=== PATIENT | female | born 1995 | race African-American/Black ===

== ENCOUNTER 2017-03-03 20:03 | Emergency (ER) | payer BC, OTHER ==
[~2017-03-03] VITALS: Ht 160 cm; Wt 73.0 kg
[~2017-03-03 20:03] MED LIST: ZITH500T PO
[2017-03-03 20:04] VITALS: BP 130/88; PULSE 73; RESP 16; TEMP 98.6; O2SAT 100
--- NOTE | 2017-03-03 20:26 | PD ---
Physical Exam Time Seen by Provider: 20:24 Narrative 21yo F c/o "keep breaking out in hives" that starts at 1am this morning. Been taking Benadryl; last taken at 6pm. Itching all over. Denies fever, vomiting. Patient seen in triage. VS reviewed. Awaiting bed placement. Data Data Last Documented VS Vital Signs Date Time Temp Pulse Resp B/P Pulse Ox O2 Delivery O2 Flow Rate FiO2 03/03/17 20:04 98.6 73 16 130/88 100 Room Air MDM Supervised Visit with KENNY: Alana Marinelli Mar 03, 2017 20:26
--- NOTE | 2017-03-03 22:42 | PD ---
HPI Chief Complaint: Allergic/Adverse Reaction Time Seen by Provider: 22:24 Travel History International Travel<30 days: No Contact w/Intl Traveler<30days: No Traveled to known affect area: No History of Present Illness HPI 21yo F with no PMH presents to the ED with c/o hives since 1am this morning. States it was all over her body and it was itchy. States she last took benadryl at 6pm. Denies any fever, chest pain, sob, tongue or lip swelling, n/v , abdominal pain, focal weakness or numbness. Pt states she took a shower and it did not help. Denies any new medication or lotion or any products. PFSH Past Medical History Medical History: Denies Significant Hx Diminished Hearing: No Genitourinary: Yes (MENSTRUAL CRAMPS) Immunizations Current: Yes Tetanus Vaccination: Unknown Influenza Vaccination: No ?: Not LMP: JUST ENDED Past Surgical History Surgical History: No Previous Surgery Social History Alcohol Use: No Tobacco Use: No Substance Use: No Allergies-Medications (Allergen,Severity, Reaction): Coded Allergies: No Known Allergies (Verified , 03/03/17) Reported Meds & Prescriptions Reported Meds & Active Scripts Active No Active Prescriptions or Reported Medications Review of Systems Except as stated in HPI: all other systems reviewed are Neg Physical Exam Narrative GENERAL: 21yo F not in distress. SKIN: Focused skin assessment warm/dry. Do not see any urticaria or any rash. HEAD: Atraumatic. Normocephalic. EYES: Pupils equal and round. No scleral icterus. No injection or drainage. ENT: No tongue or lips swelling. No mucosal involvement. NECK: Trachea midline. No JVD. CARDIOVASCULAR: Regular rate and rhythm. No murmur appreciated. RESPIRATORY: No accessory muscle use. Clear to auscultation. Breath sounds equal bilaterally. GASTROINTESTINAL: Abdomen soft, non-tender, nondistended. MUSCULOSKELETAL: No obvious deformities. No clubbing. No cyanosis. No edema. NEUROLOGICAL: Awake and alert. No obvious cranial nerve deficits. Motor grossly within normal limits. Normal speech. PSYCHIATRIC: Appropriate mood and affect; insight and judgment normal. Data Data Last Documented VS Vital Signs Date Time Temp Pulse Resp B/P Pulse Ox O2 Delivery O2 Flow Rate FiO2 03/03/17 20:04 98.6 73 16 130/88 100 Room Air Orders Diphenhydramine (Benadryl) (03/03/17 22:45) [facility] Medical Decision Making Medical Screen Exam Complete: Yes Emergency Medical Condition: Yes Differential Diagnosis Urticaria vs. allergic reaction Narrative Course 21yo F here with c/o urticaria that has now resolved. I do not see any rash on exam. Pt is well appearing and not in distress. Airway patent. Vital signs stable. I ordered diphenhydramine 50mg PO for itching. Pt was upset that I could not diagnose what is wrong with her and states the rash was there but she waited too long in the waiting room. She left without being reevaluated. Diagnosis Primary Impression: Itching Patient Instructions: General Instructions Departure Forms: Tests/Procedures Additional Instructions: Please follow up with your PMD in 3-7 days for further evaluation of urticaria or return when urticaria returns. Med/Other Pt SpecificInfo: No Change to Meds Scripts No Active Prescriptions or Reported Meds Disposition: 07 AGAINST MEDICAL ADVICE Condition: Stable Isabela Hamilton DO Mar 03, 2017 22:42
[2017-03-03] MEDS ORDERED: diphenhydrAMINE HCL 50 MG CAP PO ONE (22:45)
== END 2017-03-04 00:08 | disposition left against medical advice (07) ==
LOC: NEPD 20:03
DX: L29.9 Pruritus, unspecified (principal)
CPT/HCPCS: 99283; Q0163

== ENCOUNTER 2017-12-17 15:16 | Emergency (ER) | payer BC, MEDICAID ==
--- NOTE | 2017-12-17 15:59 | PD ---
HPI Chief Complaint back pain Date Seen: Dec 17, 2017 Time Seen: 15:54 Travel History International Travel<30 Days: No Contact w/Intl Traveler<30Days: No History of Present Illness HPI Patient is a 22 year old primigravida at 21 weeks, who presents to the OB ED with lower back pain, worse in the left lower back. Has hx UTI in the past. OB care with Dr. Nicholson in [place]. She denies leakage of fluid, vaginal bleeding, and contractions. She feels baby moving regularly. She denies DUNN/N/V/D /fever/sick contacts/SOB/calf pain/dizziness/seeing spots. History Past Medical History Medical History: Denies Significant Hx Past Surgical History Surgical History: No Previous Surgery Family History Family History: Negative Social History Alcohol Use: No Tobacco Use: No Substance Abuse: No Allergies-Medications (Allergen,Severity, Reaction): Coded Allergies: No Known Allergies (Verified Allergy, Unknown, 12/17/17) Home Meds No Active Prescriptions or Reported Meds Review of Systems Except as stated in HPI: all other systems reviewed are Neg General / Constitutional: No: Fever, Weight Gain Eyes: No: Diploplia, Blurred Vision HENT: No: Headaches, Vertigo Respiratory: No: Cough, Short of Breath Gastrointestinal: No: Nausea, Vomiting, Diarrhea, Abdominal Pain Genitourinary: No: Dysuria, Hematuria Musculoskeletal: No: Cramping, Edema Skin: No Rash, No Itching Neurologic: No: Weakness, Syncope Psychiatric: No: Anxiety, Depression Physical Exam Narrative GENERAL: Well-nourished, well-developed patient. SKIN: Warm and dry. HEAD: Normocephalic and atraumatic. EYES: No scleral icterus. No injection or drainage. ENT: No nasal drainage noted. Mucous membranes pink. Airway patent. NECK: Supple, trachea midline. No JVD. CARDIOVASCULAR: Regular rate and rhythm without murmurs, gallops, or rubs. RESPIRATORY: Breath sounds equal bilaterally. No accessory muscle use. ABDOMEN/GI: Abdomen soft, non-tender, bowel sounds present, no rebound, no guarding. Gravid uterus 20 wks size. GENITOURINARY: External Genitalia: intact and normal in appearance Uterine Contractions: absent FHR: 130s EXTREMITIES: No cyanosis or edema. BACK: Nontender without obvious deformity. No CVA tenderness. NEUROLOGICAL: Awake and alert. Motor and sensory grossly within normal limits. Five out of 5 muscle strength in all muscle groups. Normal speech. Data Data Vital Signs Reviewed: Yes Orders Orders Vital Signs (Adult) .ON ADMISSION (12/17/17 15:54) ^ Labor Status (12/17/17 15:54) Heart (12/17/17 15:54) Urinalysis - C+S If Indicated (12/17/17 15:54) ^ Hydration (12/17/17 15:54) MDM Medical Record Reviewed: Yes Narrative Course / MDM 22-year-old at 21 weeks presenting for lower back pain, no systemic symptoms, + CVA tenderness. Will obtain UA to rule out UTI. Will discharge home with close f/u, treat UTI if indicated. Update @ 1700: UA negative. She notes that she has some heavy lifting at work, recommending heating pad and short-term bed rest if possible. She has f/u appointment at her OB doctor in one week. Intrauterine : Category 1 tracing Expect vaginal delivery Cervix closed, thick, high Intact membranes PO hydration Monitor heart tones Routine care SDW Dr. Hanks Plan D/C to home Diagnosis Diagnosis: Primary Impression: Abdominal pain during in second trimester Disposition: 01 DISCHARGE HOME Condition: Stable Scripts No Active Prescriptions or Reported Meds Patient Instructions: Abdominal Pain in (ED) Tamara Olivia MD R2 Dec 17, 2017 15:59
[2017-12-17] MEDS ORDERED: ACETAMINOPHEN 325 MG TAB PO ONE (16:00)
[2017-12-17 16:56] LABS: BILIRUBIN, URINE NEG (NEG); BLOOD, URINE NEG (NEG); GLUCOSE,URINE NEG (NEG); KETONE, URINE NEG (NEG); MUCUS URINE FEW /lpf (OCC); NITRITE,URINE NEG (NEG); URINE COLOR YELLOW (YELLW/STRAW); URINE LEUKOCYTE ESTERASE NEG (NEG)
== END 2017-12-17 17:18 | disposition home or self-care (01) ==
LOC: HOBED 15:16
DX: O26.892 Other specified pregnancy related conditions, second trimester (principal); R10.9 Unspecified abdominal pain; M54.5 Low back pain; Z3A.21 21 weeks gestation of pregnancy
CPT/HCPCS: 81001; 99284